=== PATIENT | male | born 1950 | race Hispanic/Latino ===

== ENCOUNTER → 2018-04-30 | Day surgery (SDC) | payer MEDICARE ==
[2018-04-26 12:33] LABS: BASOPHILS % 0.5 % (0.0-1.0); EOSINOPHILS # (AUTO) 0.1 (0.0-0.4); EOSINOPHILS % 1.6 % (0.0-6.0); HEMATOCRIT 44.9 % (38.2-49.6); HEMOGLOBIN 14.6 g/dL (14.0-18.0); LYMPHOCYTES # (AUTO) 2.4 (1.0-3.2); LYMPHOCYTES % 38.8 % (18.0-39.1); MEAN CORPUSCULAR HEMOGLOBIN 27.4 pg (28-32); MEAN CORPUSCULAR HGB CONC 32.5 g/dL (31-35); MEAN CORPUSCULAR VOLUME 84.4 fL (81-99); MONOCYTES # (AUTO) 0.7 (0.2-0.8); MONOCYTES % 10.6 % (4.4-11.3); NEUTROPHILS % 48.3 % (38.7-80.0); PLATELET COUNT 239 x10e3/uL (140-360); RED BLOOD COUNT 5.32 x10e6/uL (4.3-5.7); RED CELL DISTRIBUTION WIDTH 13.7 % (11.7-14.4)
[2018-04-26 12:47] LABS: ANION GAP 11.3 mmol/L (8-16); BLOOD UREA NITROGEN 17 mg/dL (7-26); BUN/CREATININE RATIO 22 (6-25); CALCIUM 9.6 mg/dL (8.4-10.2); CARBON DIOXIDE 27 mmol/L (22-29); CHLORIDE 106 mmol/L (98-107); CREATININE, SERUM 0.79 mg/dL (0.72-1.25); EST GLOMERULAR FILTRATION RATE > 60 ML/MIN (60-); GLUCOSE 94 mg/dL (74-118); POTASSIUM 4.3 mmol/L (3.5-5.1); SODIUM 140 mmol/L (136-145)
--- NOTE | 2018-04-26 13:04 | Diagnostic Imaging Report ---
EXAM: CHEST 2 VIEWS, PA and lateral DATE: 04/26/2018 Time stamp on exam: 12:31 PM INDICATION: Preoperative COMPARISON: None FINDINGS: LINES/TUBES: None LUNGS: No consolidations or edema. PLEURA: No effusions or pneumothorax. HEART AND MEDIASTINUM: Normal size and contour. BONES AND SOFT TISSUES: There are degenerative changes of the spine. IMPRESSION: No acute thoracic abnormality. Signed by: Dr. Everton Phillip DO on 04/26/2018 1:01 PM
[~2018-04-30] MED LIST: ASPIR 8181 MG PO; BUPIVACAINE 0.25%/EPI 30ML SDV INJ ONE; DESFLURANE 240 ML BTL INH ONE; DEXAMETHASONE SOD PHOS INJ 4 MG/ML VIAL ONE; FENTANYL CITRATE/PF 100MCG/2 ML INJ ONE; FISH OIL 1,0001 EAC2 PO; HYDROCODONE/APAP 7.5MG-325MG 1 EA TAB ONE; LIDOCAINE HCL 2% LOCAL INJ 5 ML SDV VIAL INJ ONE; MIDAZOLAM HCL 2 MG/2 ML VIAL ONE; ONDANSETRON HCL INJ 2MG/ML 2ML 2 MG/ML VIAL ONE; PROPOFOL IV EMULSION 10 MG/ML 20 ML VIAL ONE
--- OUTSIDE RECORDS SUMMARY | 2018-04-30 11:34 | XMS REPORT ---
Author Author [facility] Address Unknown Phone Unavailable Care Team Providers Care Medical Accounting Clerk Name Role Phone Charito RANDOLPH Unavailable Unavailable Problems This patient has no known problems. Allergies, Adverse Reactions, Alerts This patient has no known allergies or adverse reactions. Medications This patient has no known medications. Results Test Description Test Time Test Comments Text Results Atomic Results Result Comments CHEST 2 VIEWS 2018-04-26 13:00:00 [place] [address] Patient Name: DONN GOODSON MR #: [id number] : 1950 Age/Sex: 67/M Req #: [id number] [facility] Physician: Ordered by: ABEL RANDOLPH MD Report #: [id number] Location: OR Room/Bed: Procedure: [id number] DX/CHEST 2 VIEWS Exam Date: 04/26/18 Exam Time: 1237 REPORT STATUS: Signed EXAM: CHEST 2 VIEWS, PA and lateral DATE: 04/26/2018 Time stamp on exam: 12:31 PM INDICATION: Preoperative COMPARISON: None FINDINGS: LINES/TUBES: None LUNGS: No consolidations or edema. PLEURA: No effusions or pneumothorax. HEART AND MEDIASTINUM: Normal size and contour. BONES AND SOFT TISSUES: There are degenerative changes of the spine. IMPRESSION: No acute thoracic abnormality. Signed by: Dr. Daquan Phillip DO on 04/26/2018 1:01 PM Dictated By: DAQUAN PHILLIP DO 1301 Transcribed By: CARLY on 04/26/18 1301 COPY TO: ABEL RANDOLPH MD
[2018-04-30 18:15] VITALS: BP 122/60
--- NOTE | 2018-05-01 00:45 | Operative Report ---
DATE OF PROCEDURE: 04/30/2018 SURGEON: Mike De Jesus MD PREOPERATIVE DIAGNOSIS: Mass of the right lumbar region. POSTOPERATIVE DIAGNOSIS: Mass of the right lumbar region. OPERATION PERFORMED: Resection of mass of the right lumbar region. ED PHYSICIANS: JOSEFINA Pineda. ANESTHESIA: General. COMPLICATIONS: None. ESTIMATED BLOOD LOSS: Minimal. DESCRIPTION OF PROCEDURE: With the patient lying in the bed in the lateral position under good general endotracheal anesthesia, the back was prepped with Betadine solution and draped in the usual manner. The area overlying the mass in the right lumbar region was then infiltrated with 0.25% Marcaine with epinephrine. An incision was made, carried down through the subcutaneous tissue and through the superficial muscular layer and intramuscularly, then a lipomatous mass was encountered, which was carefully from all of the surrounding tissue and slowly and carefully resected. It was stuck inferiorly to the fascia and also laterally to the paraspinal musculature. The mass was still incompletely resected and sent for pathological examination. The whole area was then thoroughly irrigated. Perfect hemostasis was ascertained. Fascia and muscle were then reapproximated with interrupted sutures of 3-0 Vicryl, and the skin was closed with interrupted vertical mattress sutures of 3-0 silk. A dressing was applied. The sponge, lap, and needle count was correct. The patient tolerated the procedure well and returned to the recovery room in stable condition. Mike De Jesus MD JLR/MODL /[id number]
== END | disposition home or self-care (01) ==
LOC: OR 11:32
PROVIDERS: ATTEND Surgery
DX: D17.9 Benign lipomatous neoplasm, unspecified (principal); R00.1 Bradycardia, unspecified; F41.9 Anxiety disorder, unspecified; Z01.810 Encounter for preprocedural cardiovascular examination; Z01.812 Encounter for preprocedural laboratory examination; Z01.818 Encounter for other preprocedural examination; Z79.82 Long term (current) use of aspirin
CPT/HCPCS: 21932; 36415; 71046; 80048; 85025; 88304; 93005; J1100; J2001; J2250; J2405; J2704